=== PATIENT | female | born 1990 | race African-American/Black ===

== ENCOUNTER 2019-11-02 17:24 | Observation (INO) | payer BC ==
[2019-11-02] MEDS ORDERED: ACETAMINOPHEN 325 MG TABLET PO PRN (17:52)
[2019-11-02] MEDS ORDERED: IBUPROFEN 800 MG TABLET PO PRN (17:52)
[2019-11-02] MEDS: RINGERS SOLUTION,LACTATED 1,000 ML IV PRN (18:09)
[2019-11-02] MEDS: MISOPROSTOL 0.2 MG TABLET PO SCH ×2 (18:09→21:59)
[2019-11-02 18:45] LABS: HEMATOCRIT 33.3 % (36.0-47.0); HEMOGLOBIN 11.5 g/dL (12.0-15.5); MEAN CORPUSCULAR HEMOGLOBIN 32.1 pg (27.0-33.4); MEAN CORPUSCULAR HGB CONC 34.6 g/dL (32.0-36.0); MEAN CORPUSCULAR VOLUME 93 fl (80-97); PLATELET COUNT 243 10^3/uL (150-450); RED BLOOD COUNT 3.59 10^6/uL (3.72-5.28); RED CELL DISTRIBUTION WIDTH 13.6 % (11.5-14.0); WHITE BLOOD COUNT 8.2 10^3/uL (4.0-10.5)
[2019-11-03] MEDS: RINGERS SOLUTION,LACTATED 1,000 ML IV PRN ×2 (01:48→09:52)
[2019-11-03] MEDS: MISOPROSTOL 0.2 MG TABLET PO SCH ×2 (01:49→06:05)
[2019-11-03] MEDS ORDERED: MISOPROSTOL 0.2 MG TABLET PO SCH (10:00)
[2019-11-03] MEDS ORDERED: MISOPROSTOL 0.2 MG TABLET VG SCH (10:00)
[2019-11-03] MEDS: MISOPROSTOL 0.2 MG TABLET PV SCH ×2 (10:32→15:15)
[2019-11-03] MEDS: OXYCODONE-ACETAMINOPHEN 5-325 MG TABLET ONE ×2 (14:46→14:47)
--- NOTE | 2019-11-03 15:20 | PDOC PROGRESS REPORT ---
Subjective-OB Progress Note for:: 11/03/19 Subjective: She has delivered a male infant with no signs of like. 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 Otherwise I see no abnormalities with the fetus. The placenta has not yet delivered. Some more cytotec was placed per vagina (800mcg) to assist with delivery of the placenta. Physical Exam (OB) Vital Signs: Temp Pulse Resp BP Pulse Ox 99.7 F 87 18 124/79 98 11/03/19 15:02 11/03/19 15:02 11/03/19 15:02 11/03/19 15:02 11/03/19 15:02 Intake & Output 11/02/19 11/03/19 11/04/19 06:59 06:59 06:59 Intake Total 956 1000 Balance 956 1000 Weight 84.5 kg - Abdomen Hernia Present: No Objective-Diagnostic Laboratory: 11/02/19 17:49 11/02/19 11/02/19 17:49 18:12 WBC 8.2 RBC 3.59 L Hgb 11.5 L Hct 33.3 L MCV 93 MCH 32.1 MCHC 34.6 RDW 13.6 Plt Count 243 Blood Type B POSITIVE Antibody Screen NEGATIVE
--- NOTE | 2019-11-03 15:29 | PDOC DISCHARGE SUMMARY ---
Impression - Admit/DC Date/PCP Admission Date/Primary Care Provider: 11/02/19 17:24 WILL DAVIDSON NP Discharge Date: 11/03/19 - Discharge Diagnosis (1) demise Is this a current diagnosis for this admission?: Yes - Assessment Summary: She was admitted for a demise and induction of labor. Cytotec was used to induce a labor. A male fetus was delivered with no signs of life. We are anticipating the delivery of the placenta at this time. Afterwards she would like to go home. We plan a followup in the office. - Additional Information Resuscitation Status: Full Code Discharge Diet: As Tolerated Discharge Activity: Balance Activity w/Rest, Pelvic Rest Referrals: WILL DAVIDSON NP [Primary Care Provider] - Prescriptions: Ibuprofen [Motrin 800 mg Tablet] 800 mg PO Q8HP PRN #30 tablet PRN Reason: Home Medications: Ibuprofen [Motrin 800 mg Tablet] 800 mg PO Q8HP PRN #30 tablet 11/03/19 History of Present Illiness History of Present Illness: ILA HUDSON is a 29 year old female Physical Exam - Physical Exam Vital Signs: Temp Pulse Resp BP Pulse Ox 99.7 F 87 18 124/79 98 11/03/19 15:02 11/03/19 15:02 11/03/19 15:02 11/03/19 15:02 11/03/19 15:02 Intake & Output 11/02/19 11/03/19 11/04/19 06:59 06:59 06:59 Intake Total 956 1000 Balance 956 1000 Weight 84.5 kg Results Laboratory Results: WBC 8.2 10^3/uL (4.0-10.5) 11/02/19 17:49 RBC 3.59 10^6/uL (3.72-5.28) L 11/02/19 17:49 Hgb 11.5 g/dL (12.0-15.5) L 11/02/19 17:49 Hct 33.3 % (36.0-47.0) L 11/02/19 17:49 MCV 93 fl (80-97) 11/02/19 17:49 MCH 32.1 pg (27.0-33.4) 11/02/19 17:49 MCHC 34.6 g/dL (32.0-36.0) 11/02/19 17:49 RDW 13.6 % (11.5-14.0) 11/02/19 17:49 Plt Count 243 10^3/uL (150-450) 11/02/19 17:49 Blood Type B POSITIVE 11/02/19 18:12 Antibody Screen NEGATIVE 11/02/19 18:12 Stroke Is this a Stroke Patient?: No Acute Heart Failure - Is this a Heart Failure Patient?: No
[2019-11-03] MEDS ORDERED: OXYCODONE-ACETAMINOPHEN 5-325 MG TABLET PO ONE (16:00)
[2019-11-03 18:23] VITALS: BP 124/74
[2019-11-06 08:23] LABS: PARVOVIRUS B19 IGG AB 6.3 index (0.0-0.8); PARVOVIRUS B19 IGM AB 0.2 index (0.0-0.8)
== END 2019-11-03 18:54 | disposition home or self-care (01) ==
LOC: 2N 17:24
PROVIDERS: ADMIT Obstetrics & Gynecology; ATTEND Obstetrics & Gynecology
DX: O02.1 Missed abortion (principal)
CPT/HCPCS: 86900; 86901; 36415; 86850; 85027; 86592; 86747 ×3; 59200; G0378 ×2; G0379; J7120 ×2